=== PATIENT | female | born 1960 | race Two or more races ===

== ENCOUNTER 2020-08-06 07:58 | Outpatient (CLI) | payer OTHER | END 2020-08-06 08:00 | disposition home or self-care (01) | LOC: LAB 07:58 | PROVIDERS: ATTEND Specialist | DX: Z20.828 Contact with and (suspected) exposure to other viral communicable diseases (principal) ==

== ENCOUNTER 2020-10-19 10:28 | Outpatient (CLI) | payer OTHER | END 2020-10-19 10:38 | disposition home or self-care (01) | LOC: PPH VACUNA 10:28 | DX: Z23 Encounter for immunization (principal) ==

== ENCOUNTER 2021-05-12 13:25 | Outpatient (CLI) | payer OTHER | END 2021-05-12 13:50 | disposition home or self-care (01) | LOC: PPH VACUNA 13:25 | PROVIDERS: ATTEND Emergency Medicine Pediatric Emergency Medicine | DX: Z23 Encounter for immunization (principal) ==

== ENCOUNTER 2022-01-31 08:47 | Outpatient (CLI) | payer OTHER | END 2022-01-31 08:48 | disposition home or self-care (01) | LOC: LAB 08:47 | PROVIDERS: ATTEND Internal Medicine Gastroenterology | DX: Z20.822 Contact with and (suspected) exposure to COVID-19 (principal) ==